=== PATIENT | male | born 1940 | race Caucasian/White ===

== ENCOUNTER 2017-03-14 12:22 | Outpatient (CLI) | payer MEDICARE | END 2017-03-14 23:59 | disposition home or self-care (01) | LOC: VAS 12:22 | PROVIDERS: ATTEND Specialist | DX: R59.0 Localized enlarged lymph nodes (principal); R60.0 Localized edema | CPT/HCPCS: 93970 ==

== ENCOUNTER 2017-08-10 08:52 | Emergency (ER) | payer MEDICARE ==
[~2017-08-10] VITALS: Ht 370.8 cm; Wt 87.0 kg
[2017-08-10 09:16] LABS: BASOPHILS % (AUTO) 0 % (0-1); EOSINOPHILS # (AUTO) 0.1 X10'3 (0-0.9); EOSINOPHILS % (AUTO) 1.2 % (0-6); HEMATOCRIT 45.1 % (42.0-52.0); HEMOGLOBIN 15.5 g/dl (14.0-17.9); LYMPHOCYTES # (AUTO) 0.4 X10'3 (1.1-4.8); LYMPHOCYTES % (AUTO) 4.9 % (21-51); MEAN CORPUSCULAR HGB CONC 34.3 % (33.0-36.5); MEAN CORPUSCULAR VOLUME 93.4 FL (78-98); MEAN PLATELET VOLUME 6.6 FL (7.4-10.4); MONOCYTES # (AUTO) 0.4 X10'3 (0-0.9); MONOCYTES % (AUTO) 4.4 % (2-12); NEUTROPHILS # (AUTO) 8.1 X10'3 (1.8-7.7); NEUTROPHILS % (AUTO) 89.5 % (42-75); PLATELET COUNT 259 X10'3 (140-440); RED BLOOD COUNT 4.83 X10'6 (4.70-6.10); RED CELL DISTRIBUTION WIDTH 14.2 % (11.5-14.5)
[2017-08-10 09:26] LABS: INR 1.3 INR; PARTIAL THROMBOPLASTIN TIME 29 SECONDS (22-32); PROTHROMBIN TIME 13.4 SECONDS (9.0-12.0)
[2017-08-10 09:34] LABS: ALANINE AMINOTRANSFERASE 26 U/L (12-78); ALBUMIN 3.8 G/DL (3.4-5.0); ALBUMIN/GLOBULIN RATIO 1.1 (1.1-1.5); ALKALINE PHOSPHATASE 61 IU/L (46-116); ANION GAP 9 (8-16); ASPARTATE AMINO TRANSFERASE 38 U/L (10-37); BILIRUBIN,TOTAL 1.4 MG/DL (0.1-1.0); BLOOD UREA NITROGEN 16 MG/DL (7-18); CALCIUM 9.7 MG/DL (8.5-10.1); CHLORIDE 94 MMOL/L (99-107); GLUCOSE 112 MG/DL (70-104); POTASSIUM 4.7 MMOL/L (3.5-5.1); SODIUM 130 MMOL/L (135-145); TOTAL CARBON DIOXIDE 26.8 MMOL/L (24-32); TOTAL PROTEIN 7.3 G/DL (6.4-8.2); eGFR 73 ML/MIN
[2017-08-10 09:42] LABS: MAGNESIUM 2.1 MG/DL (1.5-2.4)
[2017-08-10] MEDS ORDERED: PEG15DRO2 (10:18)
[2017-08-10] MEDS ORDERED: CHOL100046 PO (10:18)
[2017-08-10] MEDS ORDERED: LACRIL (10:18)
[2017-08-10] MEDS ORDERED: SIMV10TA6 PO (10:18)
[2017-08-10] MEDS ORDERED: GLUC-200 (10:18)
[2017-08-10] MEDS ORDERED: APIX5TAB3 PO (12:39)
[2017-08-10] MEDS ORDERED: SOTA80TA73 PO (12:39)
[2017-08-10 13:01] VITALS: BP 141/88
== END 2017-08-10 13:03 | disposition home or self-care (01) ==
LOC: ER 08:52
DX: I48.91 Unspecified atrial fibrillation (principal); Z79.899 Other long term (current) drug therapy
CPT/HCPCS: 36415; 71045; 80053; 83735; 84484; 85025; 85610; 85730; 93005; 99285

== ENCOUNTER 2017-09-12 04:54 | Day surgery (SDC) | payer MEDICARE ==
[2017-09-11 10:06] LABS: BASOPHILS % (AUTO) 0.1 % (0-1); EOSINOPHILS # (AUTO) 0.1 X10'3 (0-0.9); EOSINOPHILS % (AUTO) 1.5 % (0-6); HEMATOCRIT 42.8 % (42.0-52.0); HEMOGLOBIN 14.6 g/dl (14.0-17.9); LYMPHOCYTES # (AUTO) 0.7 X10'3 (1.1-4.8); LYMPHOCYTES % (AUTO) 12.7 % (21-51); MEAN CORPUSCULAR HEMOGLOBIN 32.2 PG (27.0-31.0); MEAN CORPUSCULAR VOLUME 94.5 FL (78-98); MEAN PLATELET VOLUME 7.2 FL (7.4-10.4); MONOCYTES # (AUTO) 0.5 X10'3 (0-0.9); NEUTROPHILS # (AUTO) 4.5 X10'3 (1.8-7.7); NEUTROPHILS % (AUTO) 76.7 % (42-75); PLATELET COUNT 215 X10'3 (140-440); RED BLOOD COUNT 4.53 X10'6 (4.70-6.10); RED CELL DISTRIBUTION WIDTH 14.5 % (11.5-14.5); WHITE BLOOD COUNT 5.8 X10'3 (4.5-11.0)
[2017-09-11 10:15] LABS: INR 1.3 INR; PROTHROMBIN TIME 13.1 SECONDS (9.0-12.0)
[2017-09-12] VITALS (15 sets, daily range): BP systolic 97–146; BP diastolic 56–97
[~2017-09-12 04:54] MED LIST: APIX5TAB3 PO; CHOL100046 PO; GLUC-200; LACRIL; PEG15DRO2; SIMV10TA6 PO; SOTA80TA73 PO
[2017-09-12] MEDS ORDERED: atropine 0.1mg/ml 10ml syringe IV ONE ×2 (05:25→08:55)
[2017-09-12] MEDS ORDERED: normal saline 1000ml 1,000 ML IV SCH (05:25)
[2017-09-12] MEDS ORDERED: diphenhydrAMINE 25mg capsule PO ONE (05:25)
[2017-09-12] MEDS ORDERED: LORazepam 0.5 MG tablet PO ONE (05:25)
[2017-09-12] MEDS ORDERED: MIDAZolam 5mg/ml 2ml vial IV ONE (05:25)
[2017-09-12] MEDS ORDERED: amiodarone in dextrose, iso-osm 150mg/100ml bag IV ONE (05:25)
[2017-09-12] MEDS ORDERED: morphine 10mg/ml inj. IV ONE (05:25)
[2017-09-12] MEDS ORDERED: SOTA80TA73 PO (05:46)
[2017-09-12] MEDS ORDERED: APIX5TAB3 PO (05:46)
[2017-09-12] MEDS ORDERED: PRAV10TA39 PO (05:46)
[2017-09-12] MEDS ORDERED: POTA25TA13 PO (05:46)
[2017-09-12] MEDS ORDERED: GLUC-133 PO (05:46)
[2017-09-12] MEDS ORDERED: FURO40TA4 PO (05:46)
[2017-09-12] MEDS ORDERED: AMIO200T57 PO ×4 (09:37→09:38)
[2017-09-12] MEDS ORDERED: CARV3.12 PO (09:38)
== END 2017-09-12 10:00 | disposition home or self-care (01) ==
LOC: SSTAY O 04:54
PROVIDERS: ATTEND Internal Medicine Cardiovascular Disease
DX: I48.1 Persistent atrial fibrillation (principal); E78.5 Hyperlipidemia, unspecified; I25.2 Old myocardial infarction; K21.9 Gastro-esophageal reflux disease without esophagitis; M19.90 Unspecified osteoarthritis, unspecified site; I10 Essential (primary) hypertension; J45.998 Other asthma; N40.0 Benign prostatic hyperplasia without lower urinary tract symptoms; I49.8 Other specified cardiac arrhythmias; Z72.89 Other problems related to lifestyle; Z87.891 Personal history of nicotine dependence; Z79.01 Long term (current) use of anticoagulants; Z90.89 Acquired absence of other organs; Z90.49 Acquired absence of other specified parts of digestive tract; Z98.890 Other specified postprocedural states; Z79.899 Other long term (current) drug therapy
CPT/HCPCS: 36415; 83880; 85025; 85610; 92960; 93005; J0282; J0461; J2250; J2270; J7030; A4620

== ENCOUNTER 2017-09-19 18:52 | Emergency (ER) | payer MEDICARE ==
[~2017-09-19] VITALS: Ht 660.3 cm; Wt 91.8 kg
[~2017-09-19 18:52] MED LIST changes: +AMIO200T57 PO; +CARV3.12 PO; +FURO40TA4 PO; +GLUC-133 PO; -GLUC-200; -PEG15DRO2; +POTA25TA13 PO; +PRAV10TA39 PO; -SIMV10TA6 PO; -SOTA80TA73 PO
[2017-09-19] MEDS ORDERED: cloNIDine 0.1 mg tablet PO ONE (19:30)
[2017-09-19 19:39] LABS: BASOPHILS % (AUTO) 0.4 % (0-1); EOSINOPHILS % (AUTO) 0.7 % (0-6); HEMATOCRIT 42.7 % (42.0-52.0); HEMOGLOBIN 14.8 g/dl (14.0-17.9); LYMPHOCYTES # (AUTO) 1.1 X10'3 (1.1-4.8); LYMPHOCYTES % (AUTO) 18.1 % (21-51); MEAN CORPUSCULAR HEMOGLOBIN 32.4 PG (27.0-31.0); MEAN CORPUSCULAR HGB CONC 34.7 % (33.0-36.5); MEAN CORPUSCULAR VOLUME 93.2 FL (78-98); MEAN PLATELET VOLUME 6.6 FL (7.4-10.4); MONOCYTES # (AUTO) 0.6 X10'3 (0-0.9); MONOCYTES % (AUTO) 9.7 % (2-12); NEUTROPHILS # (AUTO) 4.4 X10'3 (1.8-7.7); NEUTROPHILS % (AUTO) 71.1 % (42-75); PLATELET COUNT 276 X10'3 (140-440); RED BLOOD COUNT 4.58 X10'6 (4.70-6.10); RED CELL DISTRIBUTION WIDTH 14.6 % (11.5-14.5); WHITE BLOOD COUNT 6.2 X10'3 (4.5-11.0)
[2017-09-19 19:54] LABS: ALANINE AMINOTRANSFERASE 22 U/L (12-78); ALBUMIN 3.4 G/DL (3.4-5.0); ALBUMIN/GLOBULIN RATIO 1.1 (1.1-1.5); ALKALINE PHOSPHATASE 55 IU/L (46-116); ANION GAP 0 (8-16); ASPARTATE AMINO TRANSFERASE 17 U/L (10-37); BILIRUBIN,TOTAL 1.1 MG/DL (0.1-1.0); BLOOD UREA NITROGEN 10 MG/DL (7-18); BUN/CREATININE RATIO 11.2 (5.4-32.0); CALCIUM 9.2 MG/DL (8.5-10.1); CHLORIDE 94 MMOL/L (99-107); CREATININE 0.89 MG/DL (0.60-1.10); GLUCOSE 103 MG/DL (70-104); POTASSIUM 4.4 MMOL/L (3.5-5.1); SODIUM 126 MMOL/L (135-145); TOTAL PROTEIN 6.6 G/DL (6.4-8.2); eGFR 83 ML/MIN
[2017-09-19 20:34] VITALS: BP 148/96
[2017-09-22] MEDS ORDERED: CARV3.12 PO (17:27)
[2017-09-22] MEDS ORDERED: AMIO200T57 PO (17:27)
[2017-09-22] MEDS ORDERED: LOSA25TA96 PO (17:27)
== END 2017-09-19 20:36 | disposition home or self-care (01) ==
LOC: ER 18:52
DX: I10 Essential (primary) hypertension (principal); E87.1 Hypo-osmolality and hyponatremia; I48.91 Unspecified atrial fibrillation; Z79.899 Other long term (current) drug therapy
CPT/HCPCS: 36415; 71045; 80053; 83880; 84484; 85025; 93005; 99285

== ENCOUNTER 2017-10-24 09:54 | Day surgery (SDC) | payer MEDICARE ==
[~2017-10-24 09:54] MED LIST changes: +AMIO200T40 PO; +AMIO200T54 PO; -AMIO200T57 PO; -CHOL100046 PO; -GLUC-133 PO
[2017-10-24] MEDS ORDERED: LIDOcaine 2% 5ml jelly ONE (11:04)
[2017-10-24] MEDS ORDERED: HYDR-4069 PO (12:04)
[2017-10-24] MEDS ORDERED: LOSA50TA3 PO (12:06)
[2017-10-24] MEDS ORDERED: APIX5TAB3 PO (12:12)
[2017-10-24] MEDS ORDERED: CHOL100046 PO (12:13)
== END 2017-10-24 11:58 | disposition home or self-care (01) ==
LOC: WOUND CARE 09:54
PROVIDERS: ATTEND Surgery
DX: L89.892 Pressure ulcer of other site, stage 2 (principal); L97.211 Non-pressure chronic ulcer of right calf limited to breakdown of skin; E78.5 Hyperlipidemia, unspecified; I25.2 Old myocardial infarction; I48.0 Paroxysmal atrial fibrillation; M19.90 Unspecified osteoarthritis, unspecified site; I10 Essential (primary) hypertension; Z79.01 Long term (current) use of anticoagulants; Z87.891 Personal history of nicotine dependence
CPT/HCPCS: 97597; A6021; A6206; A6212

== ENCOUNTER 2017-10-30 08:50 | Outpatient (CLI) | payer MEDICARE ==
[~2017-10-30 08:50] MED LIST changes: -AMIO200T40 PO; +CHOL100046 PO; +HYDR-4069 PO; +LOSA50TA3 PO
== END 2017-10-30 11:13 | disposition home or self-care (01) ==
LOC: WOUND CARE 08:50 → EDSTATUS 09:00 → WOUND CARE 11:13
PROVIDERS: ATTEND Surgery
DX: L97.211 Non-pressure chronic ulcer of right calf limited to breakdown of skin (principal); L89.892 Pressure ulcer of other site, stage 2
CPT/HCPCS: 99214; A6021; A6206; A6212

== ENCOUNTER 2017-11-23 08:30 | Day surgery (SDC) | payer MEDICARE | END 2017-11-23 10:20 | disposition home or self-care (01) | LOC: WOUND CARE 08:30 | PROVIDERS: ATTEND Surgery | DX: L89.892 Pressure ulcer of other site, stage 2 (principal); L97.211 Non-pressure chronic ulcer of right calf limited to breakdown of skin; E78.5 Hyperlipidemia, unspecified; I25.2 Old myocardial infarction; I48.0 Paroxysmal atrial fibrillation; M19.90 Unspecified osteoarthritis, unspecified site; I10 Essential (primary) hypertension; I89.0 Lymphedema, not elsewhere classified; Z79.01 Long term (current) use of anticoagulants; Z87.891 Personal history of nicotine dependence | CPT/HCPCS: 97597; A6021; A6206; A6212 ==

== ENCOUNTER 2017-12-07 08:47 | Outpatient (CLI) | payer MEDICARE | END 2017-12-07 10:19 | disposition home or self-care (01) | LOC: WOUND CARE 08:47 → EDSTATUS 09:00 → WOUND CARE 10:19 | PROVIDERS: ATTEND Surgery | DX: L89.892 Pressure ulcer of other site, stage 2 (principal); L97.211 Non-pressure chronic ulcer of right calf limited to breakdown of skin; E78.5 Hyperlipidemia, unspecified; I25.2 Old myocardial infarction; I89.0 Lymphedema, not elsewhere classified; I48.0 Paroxysmal atrial fibrillation; M19.90 Unspecified osteoarthritis, unspecified site; I10 Essential (primary) hypertension; Z79.01 Long term (current) use of anticoagulants; Z87.891 Personal history of nicotine dependence | CPT/HCPCS: 99215; A6021; A6206; A6212 ==

== ENCOUNTER 2017-12-14 07:18 | Day surgery (SDC) | payer MEDICARE ==
[~2017-12-14] VITALS: Ht 188 cm; Wt 96.5 kg
[~2017-12-14 07:18] MED LIST changes: +LIDOcaine 1% (10mg/ml)w/preservative injection 20ml MDV SQ ONE
[2017-12-14] MEDS ORDERED: LOSA50TA21 PO (07:50)
[2017-12-14] MEDS ORDERED: CARV3.12 PO (07:53)
[2017-12-14] MEDS ORDERED: AMIO200T54 PO (07:53)
[2017-12-14 08:30] VITALS: BP 136/78
[2017-12-14 08:35] VITALS: BP 136/78
[2017-12-14 08:45] VITALS: BP 140/67
[2017-12-14 09:00] VITALS: BP 136/77
[2017-12-14 09:15] VITALS: BP 126/74
[2017-12-14] MEDS ORDERED: LIDOcaine 1% (10mg/ml)w/preservative injection 20ml MDV SQ ONE (09:30)
== END 2017-12-14 09:36 | disposition home or self-care (01) ==
LOC: SSTAY O 07:18
PROVIDERS: ATTEND Radiology Diagnostic Radiology
DX: J90 Pleural effusion, not elsewhere classified (principal); I48.91 Unspecified atrial fibrillation; I25.10 Atherosclerotic heart disease of native coronary artery without angina pectoris; I10 Essential (primary) hypertension; E78.5 Hyperlipidemia, unspecified; J45.998 Other asthma; K21.9 Gastro-esophageal reflux disease without esophagitis; N40.0 Benign prostatic hyperplasia without lower urinary tract symptoms; M19.90 Unspecified osteoarthritis, unspecified site; F10.21 Alcohol dependence, in remission; Z87.891 Personal history of nicotine dependence; Z90.89 Acquired absence of other organs; Z79.01 Long term (current) use of anticoagulants; Z90.49 Acquired absence of other specified parts of digestive tract; Z98.890 Other specified postprocedural states; Z79.899 Other long term (current) drug therapy; Z82.49 Family history of ischemic heart disease and other diseases of the circulatory system; Z81.2 Family history of tobacco abuse and dependence
CPT/HCPCS: 32555; 71045; J2001

== ENCOUNTER 2017-12-20 07:55 | Outpatient (CLI) | payer MEDICARE ==
[~2017-12-20 07:55] MED LIST changes: -CHOL100046 PO; -LACRIL; -LIDOcaine 1% (10mg/ml)w/preservative injection 20ml MDV SQ ONE; +LOSA50TA21 PO; -LOSA50TA3 PO
== END 2017-12-20 09:51 | disposition home or self-care (01) ==
LOC: WOUND CARE 07:55 → EDSTATUS 08:30 → WOUND CARE 09:51
PROVIDERS: ATTEND Surgery
DX: L89.892 Pressure ulcer of other site, stage 2 (principal); L97.211 Non-pressure chronic ulcer of right calf limited to breakdown of skin; E78.5 Hyperlipidemia, unspecified; I25.2 Old myocardial infarction; I89.0 Lymphedema, not elsewhere classified; I48.0 Paroxysmal atrial fibrillation; M19.90 Unspecified osteoarthritis, unspecified site; I10 Essential (primary) hypertension; Z79.01 Long term (current) use of anticoagulants; Z87.891 Personal history of nicotine dependence
CPT/HCPCS: 88108; 88305; 99215

== ENCOUNTER 2017-12-31 10:52 | Emergency (ER) | payer MEDICARE ==
[~2017-12-31] VITALS: Ht 188 cm; Wt 95.7 kg
[2017-12-31 11:20] LABS: BASOPHILS % (AUTO) 0.6 % (0-1); EOSINOPHILS # (AUTO) 0.1 X10'3 (0-0.9); EOSINOPHILS % (AUTO) 2.1 % (0-6); HEMATOCRIT 39.6 % (42.0-52.0); HEMOGLOBIN 13.4 g/dl (14.0-17.9); LYMPHOCYTES # (AUTO) 0.9 X10'3 (1.1-4.8); LYMPHOCYTES % (AUTO) 12.8 % (21-51); MEAN CORPUSCULAR HEMOGLOBIN 33.1 PG (27.0-31.0); MEAN CORPUSCULAR HGB CONC 33.8 % (33.0-36.5); MEAN CORPUSCULAR VOLUME 98.1 FL (78-98); MEAN PLATELET VOLUME 6.5 FL (7.4-10.4); MONOCYTES # (AUTO) 0.6 X10'3 (0-0.9); MONOCYTES % (AUTO) 8.3 % (2-12); NEUTROPHILS # (AUTO) 5.1 X10'3 (1.8-7.7); NEUTROPHILS % (AUTO) 76.2 % (42-75); PLATELET COUNT 311 X10'3 (140-440); RED BLOOD COUNT 4.04 X10'6 (4.70-6.10); RED CELL DISTRIBUTION WIDTH 14.9 % (11.5-14.5); WHITE BLOOD COUNT 6.7 X10'3 (4.5-11.0)
[2017-12-31 11:37] LABS: ALANINE AMINOTRANSFERASE 30 U/L (12-78); ALBUMIN 3.4 G/DL (3.4-5.0); ALKALINE PHOSPHATASE 77 IU/L (46-116); ANION GAP 8 (8-16); ASPARTATE AMINO TRANSFERASE 27 U/L (10-37); BILIRUBIN,TOTAL 0.8 MG/DL (0.1-1.0); BLOOD UREA NITROGEN 13 MG/DL (7-18); BUN/CREATININE RATIO 16.3 (5.4-32.0); CALCIUM 8.9 MG/DL (8.5-10.1); CHLORIDE 94 MMOL/L (99-107); GLUCOSE 98 MG/DL (70-104); POTASSIUM 4.3 MMOL/L (3.5-5.1); SODIUM 130 MMOL/L (135-145); TOTAL CARBON DIOXIDE 28.4 MMOL/L (24-32); TOTAL PROTEIN 6.7 G/DL (6.4-8.2); eGFR > 90 ML/MIN
[2017-12-31] MEDS ORDERED: LIDOcaine 1% 30ml preserv. free vial IJ ONE (12:10)
[2017-12-31] MEDS ORDERED: LIDOcaine 1% w/EPI 1:100,000 30ml vial (MDV) IJ ONE (12:25)
[2017-12-31 14:04] VITALS: BP 156/88
== END 2017-12-31 14:06 | disposition home or self-care (01) ==
LOC: ER 10:52
DX: S01.81XA Laceration without foreign body of other part of head, initial encounter (principal); S51.011A Laceration without foreign body of right elbow, initial encounter; S09.90XA Unspecified injury of head, initial encounter; J90 Pleural effusion, not elsewhere classified; I11.0 Hypertensive heart disease with heart failure; I50.9 Heart failure, unspecified; I48.91 Unspecified atrial fibrillation; R60.0 Localized edema; Z79.01 Long term (current) use of anticoagulants; Z79.899 Other long term (current) drug therapy; W18.49XA Other slipping, tripping and stumbling without falling, initial encounter; Y93.89 Activity, other specified; Y92.89 Other specified places as the place of occurrence of the external cause; Y99.9 Unspecified external cause status
CPT/HCPCS: 12011; 36415; 70450; 70486; 71045; 72125; 80053; 83735; 84484; 85025; 93005; 99285; J3490

== ENCOUNTER 2018-01-03 07:48 | Emergency (ER) | payer MEDICARE ==
[~2018-01-03] VITALS: Ht 188 cm; Wt 96.0 kg
[2018-01-03 08:42] VITALS: BP 107/59
== END 2018-01-03 08:47 | disposition home or self-care (01) ==
LOC: ER 07:49
DX: M79.89 Other specified soft tissue disorders (principal); H57.12 Ocular pain, left eye; I48.91 Unspecified atrial fibrillation; I10 Essential (primary) hypertension; Z79.899 Other long term (current) drug therapy
CPT/HCPCS: 99284

== ENCOUNTER 2018-01-07 10:53 | Emergency (ER) | payer MEDICARE ==
[~2018-01-07] VITALS: Ht 188 cm; Wt 96.4 kg
[2018-01-07] MEDS ORDERED: LIDOcaine 40mg/ml topical solution MM ONE (11:45)
[2018-01-07] MEDS ORDERED: gentamicin 0.1% topical ointment 15gm TP SCH (11:45)
[2018-01-07 13:38] VITALS: BP 141/81
== END 2018-01-07 13:41 | disposition home or self-care (01) ==
LOC: ER 10:53
DX: T81.33XA Disruption of traumatic injury wound repair, initial encounter (principal); L08.89 Other specified local infections of the skin and subcutaneous tissue; I48.91 Unspecified atrial fibrillation; I10 Essential (primary) hypertension; Z95.1 Presence of aortocoronary bypass graft; Z79.899 Other long term (current) drug therapy; Y92.9 Unspecified place or not applicable
CPT/HCPCS: 87070; 87077; 87186; 97597; 99284; J2001

== ENCOUNTER 2018-06-06 10:45 | Emergency (ER) | payer MEDICARE, SELFPAY ==
[~2018-06-06] VITALS: Ht 188 cm; Wt 85.0 kg
[~2018-06-06 10:45] MED LIST changes: -LOSA50TA21 PO; +LOSA50TA64 PO
[2018-06-06] MEDS ORDERED: LIDOcaine 40mg/ml topical solution MM ONE (11:20)
[2018-06-06 13:07] VITALS: BP 137/81
== END 2018-06-06 13:09 | disposition home or self-care (01) ==
LOC: ER 10:45
DX: S51.812A Laceration without foreign body of left forearm, initial encounter (principal); S00.03XA Contusion of scalp, initial encounter; I48.91 Unspecified atrial fibrillation; I10 Essential (primary) hypertension; Z87.891 Personal history of nicotine dependence; Z79.899 Other long term (current) drug therapy; Z79.01 Long term (current) use of anticoagulants; W01.0XXA Fall on same level from slipping, tripping and stumbling without subsequent striking against object, initial encounter; Y93.89 Activity, other specified; Y92.89 Other specified places as the place of occurrence of the external cause; Y99.9 Unspecified external cause status
CPT/HCPCS: 70450; 99284; J2001

== ENCOUNTER 2018-11-30 04:52 | Outpatient (CLI) | payer MEDICARE | END 2018-11-30 23:59 | disposition home or self-care (01) | LOC: DIABETIC 04:52 | PROVIDERS: ATTEND Specialist | DX: Z71.3 Dietary counseling and surveillance (principal); E87.1 Hypo-osmolality and hyponatremia; I50.9 Heart failure, unspecified; I10 Essential (primary) hypertension; J45.909 Unspecified asthma, uncomplicated | CPT/HCPCS: 97802 ==

== ENCOUNTER 2019-10-22 07:01 | Day surgery (SDC) | payer MEDICARE ==
[2019-10-21 09:33] LABS: BASOPHILS % (AUTO) 0.9 % (0-1); EOSINOPHILS % (AUTO) 0.7 % (0-6); LYMPHOCYTES # (AUTO) 0.6 X10'3 (1.1-4.8); LYMPHOCYTES % (AUTO) 15.9 % (21-51); MEAN CORPUSCULAR HEMOGLOBIN 34.1 PG (27.0-31.0); MEAN CORPUSCULAR HGB CONC 34.2 g/dL (33.0-36.5); MEAN CORPUSCULAR VOLUME 99.6 FL (78-98); MEAN PLATELET VOLUME 6.4 FL (7.4-10.4); MONOCYTES # (AUTO) 0.5 X10'3 (0-0.9); MONOCYTES % (AUTO) 13.2 % (2-12); NEUTROPHILS # (AUTO) 2.8 X10'3 (1.8-7.7); NEUTROPHILS % (AUTO) 69.3 % (42-75); PLATELET COUNT 267 X10'3 (140-440); RED BLOOD COUNT 3.81 X10'6 (4.70-6.10); RED CELL DISTRIBUTION WIDTH 13.6 % (11.5-14.5); WHITE BLOOD COUNT 4.1 X10'3 (4.5-11.0)
[2019-10-21 09:35] LABS: ALBUMIN 3.3 G/DL (3.4-5.0); ANION GAP 2 (8-16); BLOOD UREA NITROGEN 21 MG/DL (7-18); BUN/CREATININE RATIO 26.6 (5.4-32.0); CALCIUM 9.2 MG/DL (8.5-10.1); CHLORIDE 98 MMOL/L (99-107); CREATININE 0.79 MG/DL (0.60-1.10); GLUCOSE 88 MG/DL (70-104); POTASSIUM 4.3 MMOL/L (3.5-5.1); SODIUM 133 MMOL/L (135-145); eGFR > 90 ML/MIN
[2019-10-22] VITALS (7 sets, daily range): BP systolic 103–142; BP diastolic 64–93
[~2019-10-22] VITALS: Ht 185.4 cm; Wt 86.4 kg
[~2019-10-22 07:01] MED LIST changes: -AMIO200T54 PO; +AMIO200T62 PO
[2019-10-22] MEDS ORDERED: LORazepam 0.5 MG tablet PO ONE (07:20)
[2019-10-22] MEDS ORDERED: diphenhydrAMINE 25mg capsule PO ONE (07:20)
[2019-10-22] MEDS ORDERED: amiodarone 150mg/dext, iso-os 100 ML IV ONE (07:20)
[2019-10-22] MEDS ORDERED: MIDAZolam 1mg/ml 10ml vial IV ONE (07:20)
[2019-10-22] MEDS ORDERED: atropine 0.1mg/ml 10ml syringe IV ONE (07:20)
[2019-10-22] MEDS ORDERED: morphine 10mg/ml inj. IV ONE (07:20)
[2019-10-22] MEDS ORDERED: normal saline 1000ml 1,000 ML IV SCH (07:20)
[2019-10-22] MEDS ORDERED: ZAR5T PO (08:24)
== END 2019-10-22 12:15 | disposition home or self-care (01) ==
LOC: SSTAY O 07:01
PROVIDERS: ATTEND Internal Medicine Cardiovascular Disease
DX: I48.19 Other persistent atrial fibrillation (principal); I50.30 Unspecified diastolic (congestive) heart failure; Z79.899 Other long term (current) drug therapy
CPT/HCPCS: 36415; 80048; 85025; 85610; 92960; 93005; J2250; J2270; J7030

== ENCOUNTER 2020-09-03 00:33 | Emergency (ER) | payer MEDICARE ==
[~2020-09-03] VITALS: Ht 188 cm; Wt 95.0 kg
[~2020-09-03 00:33] MED LIST changes: +ZAR5T PO
[2020-09-03 01:05] VITALS: BP 131/57
[2020-09-03] MEDS ORDERED: morphine 4 MG/ML inj SYRINge IM ONE (01:05)
== END 2020-09-03 05:14 | disposition home or self-care (01) ==
LOC: ER 00:34
DX: S11.91XA Laceration without foreign body of unspecified part of neck, initial encounter (principal); S20.219A Contusion of unspecified front wall of thorax, initial encounter; S09.90XA Unspecified injury of head, initial encounter; S40.012A Contusion of left shoulder, initial encounter; S00.411A Abrasion of right ear, initial encounter; M25.512 Pain in left shoulder; I48.91 Unspecified atrial fibrillation; I11.0 Hypertensive heart disease with heart failure; I50.9 Heart failure, unspecified; Z86.2 Personal history of diseases of the blood and blood-forming organs and certain disorders involving the immune mechanism; Z79.899 Other long term (current) drug therapy; W19.XXXA Unspecified fall, initial encounter; Y93.89 Activity, other specified; Y92.89 Other specified places as the place of occurrence of the external cause; Y99.8 Other external cause status
CPT/HCPCS: 70450; 72170; 73030; 99284

== ENCOUNTER 2020-09-09 09:52 | Emergency (ER) | payer MEDICARE ==
[~2020-09-09] VITALS: Ht 186.7 cm; Wt 98.3 kg
[2020-09-09 11:16] LABS: BASOPHILS % (AUTO) 0.4 % (0-1); EOSINOPHILS # (AUTO) 0.2 X10'3 (0-0.9); EOSINOPHILS % (AUTO) 2.4 % (0-6); HEMATOCRIT 37.6 % (42.0-52.0); HEMOGLOBIN 12.6 g/dl (14.0-17.9); LYMPHOCYTES # (AUTO) 0.7 X10'3 (1.1-4.8); LYMPHOCYTES % (AUTO) 7.1 % (21-51); MEAN CORPUSCULAR HEMOGLOBIN 33.2 PG (27.0-31.0); MEAN CORPUSCULAR HGB CONC 33.6 g/dL (33.0-36.5); MEAN CORPUSCULAR VOLUME 98.8 FL (78-98); MEAN PLATELET VOLUME 6.4 FL (7.4-10.4); MONOCYTES # (AUTO) 0.8 X10'3 (0-0.9); NEUTROPHILS # (AUTO) 7.5 X10'3 (1.8-7.7); NEUTROPHILS % (AUTO) 81.1 % (42-75); PLATELET COUNT 393 X10'3 (140-440); RED BLOOD COUNT 3.81 X10'6 (4.70-6.10); RED CELL DISTRIBUTION WIDTH 15.1 % (11.5-14.5); WHITE BLOOD COUNT 9.3 X10'3 (4.5-11.0)
[2020-09-09 11:36] LABS: ALANINE AMINOTRANSFERASE 17 U/L (12-78); ALBUMIN 2.5 G/DL (3.4-5.0); ALBUMIN/GLOBULIN RATIO 0.5 (1.1-1.5); ALKALINE PHOSPHATASE 80 IU/L (46-116); ANION GAP 6 (8-16); ASPARTATE AMINO TRANSFERASE 31 U/L (10-37); BILIRUBIN,TOTAL 1.2 MG/DL (0.1-1.0); BLOOD UREA NITROGEN 30 MG/DL (7-18); BUN/CREATININE RATIO 33.7 (5.4-32.0); CALCIUM 9.4 MG/DL (8.5-10.1); CHLORIDE 101 MMOL/L (99-107); CREATININE 0.89 MG/DL (0.60-1.10); GLUCOSE 94 MG/DL (70-104); POTASSIUM 3.7 MMOL/L (3.5-5.1); SODIUM 136 MMOL/L (135-145); TOTAL CARBON DIOXIDE 28.8 MMOL/L (24-32); TOTAL PROTEIN 7.1 G/DL (6.4-8.2); eGFR 83 ML/MIN
[2020-09-09 11:38] LABS: LIPASE 90 U/L (73-393)
[2020-09-09] MEDS ORDERED: iohexol 300mg/ml 100ml inj. ONE (11:52)
[2020-09-09] MEDS ORDERED: POTA25TA35 PO (13:59)
[2020-09-09 14:43] LABS: OCCULT BLOOD STOOL NEGATIVE (Neg)
[2020-09-09 15:31] LABS: CLARITY,URINE SLIGHTLY CLOUDY (Clear); COLOR,URINE YELLOW (Yellow); GLUCOSE, URINE NEGATIVE (Neg); KETONES,URINE TRACE mg/dl (Neg); LEUKOCYTE ESTERASE ,URINE NEGATIVE (Neg); NITRITES, URINE NEGATIVE (Neg); OCCULT BLOOD,URINE NEGATIVE (Neg); PROTEIN,URINE NEGATIVE (Neg)
[2020-09-09 15:39] LABS: UA COLLECTION TYPE CLN CATCH MIDSTREAM
[2020-09-09 15:48] LABS: RBC,URINE 0-2 /HPF (0-2); SQUAMOUS EPITHELIAL CELL,UR NONE SEEN /LPF (FEW); WBC,URINE 0-4 /HPF (0-4)
[2020-09-09 15:49] LABS: BACTERIA,URINE NONE SEEN /HPF (Neg); MUCUS STRANDS NONE SEEN /LPF (Neg)
[2020-09-09 15:51] LABS: CAL OXALATE CRYSTALS FEW /HPF (NEGATIVE)
--- NOTE | 2020-09-09 20:30 | NUR ---
CALL[facility] WAS TOLD BY THEM THAT CHARGE NURSE FOR THE ER WOULD BE CALLING BACK IN ABOUT 20 MINUTES
--- NOTE | 2020-09-09 23:52 | NUR ---
REPORT CALLED TO ENLONE RASTA ALTMAN
--- NOTE | 2020-09-10 01:00 | NUR ---
per pt , last dose of eliquis given 09/09/20 at 7am. pt missed evening dose.
[2020-09-10 02:57] VITALS: BP 100/58
== END 2020-09-10 02:45 | disposition short-term general hospital (02) ==
LOC: ER 09:52
DX: S22.082A Unstable burst fracture of T11-T12 vertebra, initial encounter for closed fracture (principal); Z20.822 Contact with and (suspected) exposure to COVID-19; L89.152 Pressure ulcer of sacral region, stage 2; R53.1 Weakness; R60.0 Localized edema; I48.91 Unspecified atrial fibrillation; I11.0 Hypertensive heart disease with heart failure; I50.9 Heart failure, unspecified; E05.90 Thyrotoxicosis, unspecified without thyrotoxic crisis or storm; Z86.2 Personal history of diseases of the blood and blood-forming organs and certain disorders involving the immune mechanism; Z79.899 Other long term (current) drug therapy; X58.XXXA Exposure to other specified factors, initial encounter; Y93.89 Activity, other specified; Y92.89 Other specified places as the place of occurrence of the external cause; Y99.8 Other external cause status
CPT/HCPCS: 36415; 74022; 74176; 80053; 81001; 82272; 83605; 83690; 83880; 84484; 85025; 85610; 87040; 87635; 93005; 99285; C9803; Q9967